=== PATIENT | male | born 1955 | race Caucasian/White ===

== ENCOUNTER 2024-03-22 08:45 | Emergency (ER) | payer BC ==
[~2024-03-22] VITALS: Ht 175.3 cm; Wt 70.0 kg
[2024-03-22 08:52] VITALS: O2SAT 97
[2024-03-22] MEDS: MORPHINE SULFATE 4 MG/ML INJ (FOR IV/IM USE) IV STA (09:18)
[2024-03-22] MEDS: ONDANSETRON HCL 4MG/2ML INJ IV STA (09:19)
[2024-03-22 09:28] VITALS: TEMP 36.55848
[2024-03-22 09:32] LABS: BASOPHILS % 0.7 % (0.0-2.0); EOSINOPHILS % 2.9 % (0.0-5.0); HEMATOCRIT. 36.8 % (42.0-52.0); HEMOGLOBIN. 11.9 g/dL (14.0-18.0); LYMPHOCYTES % 11.2 % (20.0-50.0); MEAN CORPUSCULAR HGB CONC 32.2 g/dL (31.0-37.0); MEAN CORPUSCULAR VOLUME 93.3 fL (80.0-94.0); MEAN PLATELET VOLUME 8.3 fl (7.4-10.4); MONOCYTES % 5.9 % (2.0-8.0); NEUTROPHILS % 79.3 % (40.0-76.0); PLATELET 164 x1000/uL (130-400); RED BLOOD CELL COUNT 3.95 mill/uL (4.7-6.1); WHITE BLOOD COUNT 8.3 x1000/uL (4.5-11.0)
[2024-03-22 09:42] LABS: CHLORIDE 94 mEq/L (98-107); POTASSIUM 3.8 mEq/L (3.5-5.1); SODIUM 134 mEq/L (136-145)
[2024-03-22 09:43] LABS: CALCIUM 9.6 mg/dL (8.7-10.4); CARBON DIOXIDE 33 mEq/L (21-32)
[2024-03-22 09:48] LABS: CREATININE 4.9 mg/dL (0.6-1.3); GLUCOSE 273 mg/dL (70-105); UREA NITROGEN BLOOD 21 mg/dL (9-23)
[2024-03-22 09:50] LABS: ALANINE AMINOTRANSFERASE 22 IU/L (10-49); ALBUMIN 4.9 g/dL (3.2-4.8); ASPARTATE AMINOTRANSFERASE 20 IU/L (<34); BILIRUBIN TOTAL 0.2 mg/dL (0.1-1.0); PROTEIN TOTAL 8.6 g/dL (6.0-8.3)
[2024-03-22 10:08] LABS: BILIRUBIN DIRECT < 0.1 mg/dL (<=3.0)
[2024-03-22 11:24] VITALS: BP 136/65; PULSE 88; RESP 16; O2SAT 100
[2024-03-22] MEDS ORDERED: METR-167 MT (12:03)
[2024-03-22] MEDS ORDERED: CIPR500T5 MT (12:03)
== END 2024-03-22 13:12 | disposition home or self-care (01) ==
LOC: ER 08:45
DX: R10.33 Periumbilical pain (principal); E11.9 Type 2 diabetes mellitus without complications; F17.210 Nicotine dependence, cigarettes, uncomplicated; Z88.0 Allergy status to penicillin; Z99.2 Dependence on renal dialysis
CPT/HCPCS: 36415; 71045; 74176; 80048; 80076; 85025; 93005; 99291